=== PATIENT | female | born 1975 | race Caucasian/White ===

== ENCOUNTER 2019-03-26 17:53 | Emergency (ER) | payer BC, MEDICAID ==
[~2019-03-26] VITALS: Ht 162.6 cm; Wt 75.0 kg
[~2019-03-26 17:53] MED LIST: ONDA8TAB9 PO; PANT-47 PO
[2019-03-26] MEDS ORDERED: morphine 4 MG/ML inj SYRINge IM ONE (20:00)
[2019-03-26] MEDS ORDERED: orphenadrine citrate 60mg/2ml inj. IM ONE (20:00)
--- NOTE | 2019-03-26 21:07 | NUR ---
MD Kellie at bedside performing rectal examination with SKYLAR Gatica.
[2019-03-26] MEDS ORDERED: HYDR-4353 PO (21:12)
[2019-03-26] MEDS ORDERED: ORPH100T2 PO (21:12)
[2019-03-26 21:24] VITALS: BP 128/75
== END 2019-03-26 21:25 | disposition home or self-care (01) ==
LOC: ER 17:54
DX: M54.32 Sciatica, left side (principal); I10 Essential (primary) hypertension; E03.9 Hypothyroidism, unspecified; F31.9 Bipolar disorder, unspecified; F41.9 Anxiety disorder, unspecified; F17.200 Nicotine dependence, unspecified, uncomplicated; F12.90 Cannabis use, unspecified, uncomplicated; F10.99 Alcohol use, unspecified with unspecified alcohol-induced disorder; Z98.890 Other specified postprocedural states; Z60.2 Problems related to living alone; Z79.899 Other long term (current) drug therapy; Y90.9 Presence of alcohol in blood, level not specified
CPT/HCPCS: 96372; 99283; J2270; J2360

== ENCOUNTER 2019-04-27 23:43 | Emergency (ER) | payer MEDICAID ==
[~2019-04-27] VITALS: Ht 162.6 cm; Wt 75.0 kg
[~2019-04-27 23:43] MED LIST changes: +HYDR-4353 PO; +ORPH100T2 PO
--- NOTE | 2019-04-28 00:41 | NUR ---
pt reports that she promised her INTERNATIONAL RECRUITER Ashley Dinahoses that she would not kill herself tonight , when asked the patient what her plan was she did not answer . when i aske pt if she would contract for safety and not try to elope she stated i will let you keep me safe ,
[2019-04-28] MEDS ORDERED: acetaminophen 325mg tablet PO ONE (00:45)
--- NOTE | 2019-04-28 00:48 | NUR ---
PATIENT IS HAVING A HARD TIME ARTICULATING HER SLEF CARE AND FEELINGS BUT WITH TIME AND PATIENCES SHE IS ABLE TO SPEAK IT OUT . PT REPORTS NOT SLEEPING FOR DAYS STATES SHE HAS BEEN ON A BIPOLAR HIGH NAD IS COMING DOWN . 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 SHE REPORTS NECK AND BACK PAIN FOR THE LAST FEW WEEKS HAS A HX OF BACK SURGREY A " FEW YEARS bACK "
--- NOTE | 2019-04-28 00:57 | NUR ---
PT IS ASKING FOR HER SISTER , DOMINGO AT [phone] STATES THAT NURSING STAFF CAN CALL HER AND TELL HER SHE IS HER MEDICATED PT WITH 650 MG OF TYLENOL FOR PAIN OF 10/10 URINE SENT TO THE LAB .
[2019-04-28 01:02] LABS: URINE HCG NEGATIVE (NEG)
[2019-04-28 01:11] LABS: URINE AMPHETAMINE SCREEN NEGATIVE (Neg); URINE BARBITUATE SCREEN NEGATIVE (Neg); URINE BENZODIAZEPINES SCREEN POSITIVE (Neg); URINE CANNABINOID SCREEN POSITIVE (Neg); URINE COCAINE SCREEN NEGATIVE (Neg); URINE METHADONE SCREEN NEGATIVE (Neg); URINE OPIATE SCREEN NEGATIVE (Neg); URINE PHENCYCLIDINE SCREEN NEGATIVE (Neg)
--- NOTE | 2019-04-28 01:16 | NUR ---
phoned pt sister rosangela, per her request to notifiy that she is in the er. phoned twice in a 20 min no answer at this time will continue to try and reach her as requested
--- NOTE | 2019-04-28 01:18 | NUR ---
pt moving all around bed trying to postion for comfort , per her resposne. occationally rocking back and forth
--- NOTE | 2019-04-28 01:39 | NUR ---
PT PHONED HER THERAPIST ESME NGUYEN [phone] OFF OF [facility] AT THE [employer] OFFICE. WHERE SHE SEEKS THERAPY
--- NOTE | 2019-04-28 01:50 | NUR ---
pt phoned her fire supervisor Ashley Porter on her private line as previous noted to let her know she is in the er and safe . pt verbalized permission for me to speak with her BACK END ENGINEER sAhley. [employer] is a [employer] that direct line is [phone] today 04/28/19 she will be at the [facility] site and can be contacted
[2019-04-28 01:57] LABS: BASOPHILS # (AUTO) 0.1 X10'3 (0-0.2); BASOPHILS % (AUTO) 0.9 % (0-1); EOSINOPHILS # (AUTO) 0.7 X10'3 (0-0.9); HEMATOCRIT 41.8 % (35.0-45.0); HEMOGLOBIN 14.2 g/dl (12.0-16.0); LYMPHOCYTES # (AUTO) 3.3 X10'3 (1.1-4.8); LYMPHOCYTES % (AUTO) 25.5 % (21-51); MEAN CORPUSCULAR HEMOGLOBIN 31.5 PG (27.0-31.0); MEAN CORPUSCULAR HGB CONC 33.9 g/dL (33.0-36.5); MEAN PLATELET VOLUME 7.7 FL (7.4-10.4); MONOCYTES # (AUTO) 0.9 X10'3 (0-0.9); MONOCYTES % (AUTO) 6.9 % (2-12); NEUTROPHILS # (AUTO) 8.1 X10'3 (1.8-7.7); NEUTROPHILS % (AUTO) 61.7 % (42-75); PLATELET COUNT 286 X10'3 (140-440); RED BLOOD COUNT 4.49 X10'6 (4.20-5.60); RED CELL DISTRIBUTION WIDTH 13.2 % (11.5-14.5); WHITE BLOOD COUNT 13.1 X10'3 (4.5-11.0)
--- NOTE | 2019-04-28 02:00 | NUR ---
PT RESTING IN BED , AWAKE BUT CALM , DENIES WANTING ANY MEDICATION FOR ANXIETY OR SLEEP AT THIS TIME " ITS NOT WORKING , I HAVE HAD ENOUGH MEDICATION, ID LIKE TO CLEAN IT OUT OF MY SELF "
[2019-04-28 02:11] LABS: ALANINE AMINOTRANSFERASE 27 U/L (12-78); ALBUMIN 3.9 G/DL (3.4-5.0); ALBUMIN/GLOBULIN RATIO 1.3 (1.1-1.5); ALKALINE PHOSPHATASE 53 IU/L (46-116); ANION GAP 8 (8-16); ASPARTATE AMINO TRANSFERASE 15 U/L (10-37); BILIRUBIN,TOTAL 0.3 MG/DL (0.1-1.0); BLOOD UREA NITROGEN 8 MG/DL (7-18); BUN/CREATININE RATIO 9.8 (6.6-38.0); CALCIUM 9.1 MG/DL (8.5-10.1); CHLORIDE 106 MMOL/L (99-107); CREATININE 0.82 MG/DL (0.40-0.90); ETHANOL < 0.010 GM/DL (0.0-0.010); GLUCOSE 93 MG/DL (70-104); POTASSIUM 3.8 MMOL/L (3.5-5.1); SODIUM 141 MMOL/L (135-145); eGFR 75 ML/MIN
--- NOTE | 2019-04-28 03:00 | NUR ---
PHONED PT SISTER DOMINGO AGAIN NO ANSWER NO MESSAGE LEFT WILL TRY AGAIN IN INE HOUR
[2019-04-28] MEDS ORDERED: LAMO100T PO (03:55)
[2019-04-28] MEDS ORDERED: METH-350 PO (03:55)
[2019-04-28] MEDS ORDERED: ALPR1TAB7 PO (03:55)
[2019-04-28] MEDS ORDERED: LEVO50TA8 PO (03:55)
[2019-04-28] MEDS ORDERED: TRAZ-251 PO (03:55)
[2019-04-28] MEDS ORDERED: OMEP-50 PO (03:55)
[2019-04-28] MEDS ORDERED: LISI10TA4 PO (03:55)
--- NOTE | 2019-04-28 04:17 | NUR ---
med rec sent to pharmacy
--- NOTE | 2019-04-28 04:19 | NUR ---
PT ASKED ME TO PHONE HER SISTER DOMINGO AGAIN AT [phone] TO NOTIFY HER THAT PT IS HER . PT REPORTS THAT HER SISTER WORKS NOC AND SHOULD BE ANSWERING HER PHONE SOON NO ANSWER NO MESSAGE LEFT WILL TRY TO PHONE AGAIN 1 HOUR
--- NOTE | 2019-04-28 04:27 | NUR ---
PACKET FAXED TO [facility]
[2019-04-28] MEDS ORDERED: methylphenidate 5mg tablet PO SCH ×2 (04:40→06:23)
--- NOTE | 2019-04-28 05:44 | NUR ---
PT STILL AWAKE , RESP UNLABORED IN THE LINE OF SITE OF STAFF , ASKED FOR MOTIN FOR DISCOMFORT
[2019-04-28] MEDS ORDERED: ibuprofen tablet 400 MG TABLET PO ONE (05:50)
--- NOTE | 2019-04-28 06:06 | NUR ---
pt sleeping on her right side resp unlabored in the line of site of staff .
--- NOTE | 2019-04-28 06:59 | NUR ---
PT IS SLEEPING ON RIGHT SIDE, RESPIRATIONS SPONTANEOUS EVEN AND UNLABORED, PT IN LINE OF SITE OF WILLIAM TOBAR, PT HAS NOT BEEN SLEEPING X COUPLE DAYS PER REPORT, WILL LET PT TO CONTINUE TO SLEEP AT THIS TIME AND EVALUATE PT LATER.
[2019-04-28] MEDS ORDERED: pantoprazole 40mg Tablet.DR PO SCH (08:00)
[2019-04-28] MEDS ORDERED: lisinopril 10 MG tablet PO SCH (08:00)
[2019-04-28] MEDS ORDERED: lamoTRIgine 100mg tablet PO SCH (08:00)
[2019-04-28] MEDS ORDERED: levoTHYROXINE 25mcg tablet PO SCH (08:00)
[2019-04-28] MEDS ORDERED: ALPRAZolam 0.5mg tablet PO SCH (08:00)
--- NOTE | 2019-04-28 08:01 | NUR ---
PT IS SLEEPING ON RIGHT SIDE, RESPIRATIONS SPONTANEOUS, EVEN AND UNLABORED, NO S/S OF DISTRESS, DISCOMFORT OR AGITATIONS, PT IN LINE OF SITE OF AMADOU SITTER.
--- NOTE | 2019-04-28 08:03 | NUR ---
BREAKFAST TRAY PLACED AT BEDSIDE BY [facility] TECH, PT WOKE UP AND IS SITTING UP EATING NOW.
--- NOTE | 2019-04-28 09:19 | NUR ---
PT IS SLEEPING ON RIGHT SIDE, RESPIRATIONS SPONTANEOUS, EVEN AND UNLABORED, NO S/S OF DISTRESS, DISCOMFORT OR AGITATIONS, PT IN LINE OF SITE OF AMADOU SITTER.
--- NOTE | 2019-04-28 09:54 | NUR ---
[facility]
[2019-04-28 11:31] VITALS: BP 149/95
[2019-04-28] MEDS ORDERED: traZODone 50mg tablet PO SCH (21:00)
== END 2019-04-28 11:25 | disposition home or self-care (01) ==
LOC: ER 23:45
DX: F22 Delusional disorders (principal); M54.9 Dorsalgia, unspecified; F60.0 Paranoid personality disorder; I10 Essential (primary) hypertension; E03.9 Hypothyroidism, unspecified; F41.9 Anxiety disorder, unspecified; F31.9 Bipolar disorder, unspecified; F12.90 Cannabis use, unspecified, uncomplicated; F10.99 Alcohol use, unspecified with unspecified alcohol-induced disorder; Z98.890 Other specified postprocedural states; Z60.2 Problems related to living alone; Z79.899 Other long term (current) drug therapy; Y90.9 Presence of alcohol in blood, level not specified
CPT/HCPCS: 36415; 80053; 80305; 80320; 81025; 85025; 99284

== ENCOUNTER 2023-06-26 15:39 | Emergency (ER) | payer BC, MEDICAID ==
[~2023-06-26] VITALS: Ht 162.6 cm; Wt 68.7 kg
[~2023-06-26 15:39] MED LIST changes: +ALPR1TAB7 PO; -HYDR-4353 PO; +LAMO100T PO; +LEVO50TA8 PO; +LISI10TA27 PO; +METH-350 PO; +OMEP20CA16 PO; -ONDA8TAB9 PO; -ORPH100T2 PO; -PANT-47 PO; +TRAZ-251 PO
[2023-06-26 15:43] VITALS: BP 147/69; PULSE 78; RESP 18; TEMP 98.9; O2SAT 98
[2023-06-26] MEDS ORDERED: DIAZ5TAB PO (16:52)
[2023-06-26] MEDS ORDERED: PRED20TA PO (17:10)
== END 2023-06-26 17:12 | disposition home or self-care (01) ==
LOC: ER 15:40
DX: M25.512 Pain in left shoulder (principal); I10 Essential (primary) hypertension; E03.9 Hypothyroidism, unspecified; F31.9 Bipolar disorder, unspecified; F12.90 Cannabis use, unspecified, uncomplicated; Z79.899 Other long term (current) drug therapy; Z79.2 Long term (current) use of antibiotics
CPT/HCPCS: 73030; 99283

== ENCOUNTER 2023-07-14 10:10 | Outpatient (CLI) | payer BC ==
[~2023-07-14 10:10] MED LIST changes: +DIAZ5TAB PO
== END 2023-07-14 23:59 | disposition home or self-care (01) ==
LOC: MRI 10:10
PROVIDERS: ATTEND Nurse Practitioner Family
DX: M19.012 Primary osteoarthritis, left shoulder (principal); M85.612 Other cyst of bone, left shoulder; M75.22 Bicipital tendinitis, left shoulder; M25.512 Pain in left shoulder
CPT/HCPCS: 73218; 73221

== ENCOUNTER 2023-07-23 15:34 | Outpatient (CLI) | payer BC | END 2023-07-23 23:59 | disposition home or self-care (01) | LOC: MRI 15:34 | PROVIDERS: ATTEND Nurse Practitioner Family | DX: M50.223 Other cervical disc displacement at C6-C7 level (principal); M48.02 Spinal stenosis, cervical region; J34.9 Unspecified disorder of nose and nasal sinuses; M25.78 Osteophyte, vertebrae | CPT/HCPCS: 72141 ==

== ENCOUNTER 2024-09-28 08:31 | Outpatient (CLI) | payer BC ==
[2024-09-28] MEDS ORDERED: iohexol 300mg/ml 100ml inj. ONE (08:41)
--- NOTE | 2024-09-28 09:39 | RADIOLOGY REPORT ---
CLINICAL INFORMATION: DISORDER OF KIDNEY AND URETER, UNSPECIFIED. TECHNIQUE: Axial CT images of the abdomen and pelvis were obtained after the uneventful administrati on of 100 mL Omnipaque 300 IV contrast. Coronal and sagittal reformatted images were obtained, review ed, and stored. All CT scans at this medical facility are performed using dose modulation techniques as appropriate to a performed exam including the following: Automated exposure control was utilized; adjustment of the MA and/or KV according to patient size; and use of iterative reconstruction technLifeproof ue. CTDIvol = 12.88 mGy DLP = 639.13 mGy-cm COMPARISON: None FINDINGS: Lung bases: Lung bases are clear. Liver: Hepatic steatosis. Hepatic pseudo lesion near the falciform ligament. Biliary: No calcified gallstones or biliary ductal dilatation. Spleen: Multiple hyperenhancing lesions are seen in the spleen, possibly hemangiomas. Pancreas: Unremarkable. No inflammatory changes, ductal dilatation, or mass identified. Adrenal glands: Left adrenal gland is mildly thickened without focal nodule demonstrated, likely hype rplasia. Kidneys: No hydronephrosis. Bilateral renal cysts, with the largest at the superior pole of the left kidney measuring up to 4.8 cm. Aorta/Vascular: No aneurysm or significant calcification. Retroperitoneum: No mass or lymphadenopathy. Bowel/mesentery: Nonspecific nondilated fluid-filled small bowel loops. No small bowel obstruction. A ppendix is visualized and appears unremarkable. Moderate stool in the colon. Pelvic organs: Uterus is surgically absent. 2.5 cm cystic structure in the left hemipelvis, likely ov tyrese cyst. Bladder: Underdistended and suboptimally evaluated. No gross abnormality identified. Abdominal wall: No mass or hernia. Bones: No acute fracture or focal intraosseous lesion. Grade 2 anterolisthesis of L5 on S1 with chron ic bilateral pars defects at L5. Severe disc space narrowing at L5-S1 with associated prominent endpl ate sclerosis and mild endplate spurring. Severe disc space narrowing at T10-T11 with associated end plate sclerosis and endplate spurring. IMPRESSION: 1. Nonspecific nondilated fluid-filled small bowel loops. Findings may be seen with ileus or enteriti s in the appropriate clinical setting. No small bowel obstruction. 2. Moderate stool in the colon. 3. Hepatic steatosis. 4. Multiple hyperenhancing lesions in the spleen, possible hemangiomas. Correlate with clinical findi ngs. If clinically indicated, multiphase pre and postcontrast MRI could be obtained to further darci cterize. 5. Additional findings as detailed above.
== END 2024-09-28 23:59 | disposition home or self-care (01) ==
LOC: RAD 08:31
PROVIDERS: ATTEND Nurse Practitioner Family
DX: K76.0 Fatty (change of) liver, not elsewhere classified (principal); K58.0 Irritable bowel syndrome with diarrhea; N28.9 Disorder of kidney and ureter, unspecified; N28.1 Cyst of kidney, acquired
CPT/HCPCS: 74177; Q9967